=== PATIENT | male | born 1950 | race Caucasian/White ===

== ENCOUNTER → 2016-04-08 | Outpatient (REF) | payer BC, MEDICARE, OTHER ==
[~2016-04-08] MED LIST: ALBU8CC IH; ASP81CT PO; CYCL-265 PO; DOXY100T41 PO; GFN600TCR PO; LSNP20T PO; NAPR550T PO; OMEG500C3 PO; OMEP20CA6 PO; OSLT75C PO; PRD20T PO; TIOT18CA IH
[2016-04-08 15:53] LABS: ALBUMIN 4.2 g/dL (3.4-5.0); ANION GAP 14.9 MEQ/L (3-15); CALCULATED IONIZED CALCIUM 4.1 mg/dL (3.8-4.6); TOTAL PROTEIN 7.9 g/dL (6.4-8.5)
== END ==
LOC: LAB 15:25
PROVIDERS: ATTEND Nurse Practitioner Family
DX: R73.09 Other abnormal glucose (principal); I10 Essential (primary) hypertension; R07.89 Other chest pain
CPT/HCPCS: 80053; 80061; 83036; 84443

== ENCOUNTER → 2016-05-26 | Outpatient (CLI) | payer BC, MEDICARE, OTHER ==
[2016-05-26 16:42] VITALS: BP 152/88
== END ==
LOC: MHUC 15:51
PROVIDERS: ATTEND Physician Assistant
DX: J09.X2 Influenza due to identified novel influenza A virus with other respiratory manifestations (principal)
CPT/HCPCS: 99213